=== PATIENT | female | born 1980 ===

== ENCOUNTER 2017-10-08 17:56 | Emergency (ER) | payer OTHER ==
[2017-08-06 13:36] VITALS: BMI 38.4
--- NOTE | 2017-10-08 19:31 | OBHP ---
Datetime: 10/08/2017 18:50 IP Adm Impression: Term, intrauterine ; No Active Labor IP Admit Plan: Discharge home Admit Comment, IP Provider: 37 y.o. , LMP 01/21/17, APPLE 10/28/17, EGA 37w 1d presents of revalu ation of possible SROM. Approx 1600 hours,m got up from sitting and noted undergarment was moist. Ch anged and observed x 25 minutes - similarly moist undergarment. Unable to describe color. Denies vagi nal bleeidng. (+) occ B-H Ctx. Not sexually active during care: Dr. Porter, noted for :1) Chr HTN; 2) Vit B12 deficiency - S/P IM therapy; last shot 2 weeks ago. 3) iron deficiency anemia - S/P IV iron infusion. Last treatment 10/06. 4) AMA - decline d amnio. 5) previous C/S; 6) Obesity P Ob: 2010, male, 7lb 12oz, failed JANA (2 cm dilated). [facility]; no complications. 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 Abnormal Pap 02/2017; S/P colpo(?) - f/u post . h/o endometriosis PMH: 1) HTN, diagnosed 2014. Denies cardiac, pulmonary, thyroid disorders PSH: 2008, laparoscopic right ovarian cystectomy (endometrioma); D_C; C/S NKDA Meds: 1) Labetalol 200mg p.o. BID; 2) PNV- once daily; 2) OTC Vit B12 - 5,000 IU -once dialy. Soc Hx: denies tobacco, illicit drug or EtOH use. x 12 years. Works in [employer] on maternity leave. Fam Hx: Mother alive ?55y.o. HTN, DM. Father alive 59 y.o. HTN. PGM - Breast Cancer P.E.: as above. Obese in NAD. Awake, alert, oriented to time, person and place. Pleasant and coop erative Assessment: 31 y.o. P1011, 37w 1d, no evidence of PROM. Previous C/S. B12 deficiency. Iron defici ency anemia - treatment as above. Category 1 tracing. BPS 03/03. Patient is clinically stable. Plan: 1) Discharge home 2) Patient for elective repeat C/S 10/11/17 3) Reviewed S/S PET and labor - as per, and discussed with, Dr. Porter. Pelvic Type - PN: Adequate Extremities - PN: Normal Abdomen - PN: Normal Breast - PN: Not Done Lungs - PN: Normal Heart - PN: Normal Thyroid - PN: Not Done Neurologic - PN: Normal HEENT - PN: Normal General - PN: Normal FHR - Baseline A Provider: 135 Contraction Comments Provider: infrequent Comments, ACOG Physical Exam: Abdomen: Obese. Gravid. Healed umbilical and Pfannenstiel scars. Perineum: dry. Sterile Speculum exam: minimal amount of pasty, creamy discharge. No odor. No pooling. Bedside sono: fundal placenta; DAMIEN 15.06 cm (MVP 5.02 cm), cepahlic, (+) FBM; (+) FM; (+) tone All other systems reviewed and are negative Gestation - Est Wks by US: 37w EGA AdmitDate IP: 37.1 Vital Signs Provider: Reviewed IP Chief Complaint: Suspected ruptured membranes NICHD Variability Prov Fetus A: Moderate 6-25bpm NICHD Accel Fetus A IP Provider: 15X15 FHR Category Provider Fetus A: Category I NICHD Decel Fetus A IP Provider: None Dilatation, Provider: 0 Effacement, Provider: 0 Station, Provider: high Genitourinary Exam: Normal DTRs - PN: Not Done
[2017-10-08 23:33] VITALS: BP 125/68; PULSE 89; RESP 18; TEMP 97.4
== END 2017-10-08 19:21 | disposition home or self-care (01) ==
LOC: C.EROB 17:56
DX: O26.893 Other specified pregnancy related conditions, third trimester (principal); E53.8 Deficiency of other specified B group vitamins; O99.013 Anemia complicating pregnancy, third trimester; D50.9 Iron deficiency anemia, unspecified; Z3A.37 37 weeks gestation of pregnancy

== ENCOUNTER 2017-10-11 07:17 | Inpatient (IN) | payer OTHER ==
[2017-10-11] MEDS ORDERED: Sodium Citrate/Citric Acid 15 ml Sol PO ONE (07:36)
[2017-10-11 07:37] VITALS: BMI 39.4
[2017-10-11] MEDS ORDERED: Lactated Ringer's 1,000 ML IV SCH (07:45)
--- NOTE | 2017-10-11 07:48 | OBHP ---
Datetime: 10/11/2017 07:43 IP Adm Impression: Term, intrauterine IP Admit Plan: Admit to unit; Initiate Section protocol Admit Comment, IP Provider: 37 y.o. , LMP 01/21/17, APPLE 10/28/17, EGA 37w 4d hx of chronic htn and preiovus ceseare esction c/ o ctx pain every 5 min since this mornign increasing intensiyt and fr uqency 02/02. Pt dnie sany lof, vb, +FM Pt dneis any headhaes, blurry vision, ruq/epigastri pain. care: Dr. Porter, noted for :1) Chr HTN; 2) Vit B12 deficiency - S/P IM therapy; last shot 2 weeks ago. 3) iron deficiency anemia - S/P IV iron infusion. Last treatment 10/06. 4) AMA - decline d amnio. 5) previous C/S; 6) Obesity P Ob: 2010, male, 7lb 12oz, failed JANA (2 cm dilated). [facility]; no complications. 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 Abnormal Pap 02/2017; S/P colpo(?) - f/u post . h/o endometriosis PMH: 1) HTN, diagnosed 2014. Denies cardiac, pulmonary, thyroid disorders PSH: 2008, laparoscopic right ovarian cystectomy (endometrioma); D_C; C/S NKDA Meds: 1) Labetalol 200mg p.o. BID; 2) PNV- once daily; 2) OTC Vit B12 - 5,000 IU -once dialy. Soc Hx: denies tobacco, illicit drug or EtOH use. x 12 years. Works in [employer] ([employer] on maternity leave. Fam Hx: Mother alive ?55y.o. HTN, DM. Father alive 59 y.o. HTN. PGM - Breast Cancer P.E.: as above. Obese in NAD. Awake, alert, oriented to time, person and place. Pleasant and coop erative Assessment: 31 y.o. P1011, 37w 4d chronic htn prevuoius cesearen section velia in labor Plan: -admit to L+D -npo, ivf -or/anstheis aware -admission labs -BP vitals, PIH baseline -conesnt obtaine -abdominal prep, thompson to graivty scds -antibiotics Pelvic Type - PN: Adequate Extremities - PN: Normal Abdomen - PN: Normal Back - PN: Normal Breast - PN: Not Done Lungs - PN: Normal Heart - PN: Normal Thyroid - PN: Not Done Neurologic - PN: Normal HEENT - PN: Normal General - PN: Normal Weight - Estimated: 3300 Presentation-Admit: Vertex FHR - Baseline A Provider: 125 Membranes, Provider: Intact Gestation - Est Wks by US: 37.4 IP Hx Assessment: The History has been Reviewed and is Current EGA AdmitDate IP: 37.4 Vital Signs Provider: Reviewed; Within Normal Limits IP Chief Complaint: Uterine contractions NICHD Variability Prov Fetus A: Moderate 6-25bpm FHR Category Provider Fetus A: Category I NICHD Decel Fetus A IP Provider: None Dilatation, Provider: 3 Effacement, Provider: 50 Station, Provider: -2 Genitourinary Exam: Normal DTRs - PN: Normal
--- NOTE | 2017-10-11 08:00 | OBADHP ---
Datetime: 10/11/2017 07:43 Admit Comment, IP Provider: 37 y.o. , LMP 01/21/17, APPLE 10/28/17, EGA 37w 4d hx of chronic htn and preiovus ceseare esction c/ o ctx pain every 5 min since this mornign increasing intensiyt and fr uqency 02/02. Pt dnie sany lof, vb, +FM Pt dneis any headhaes, blurry vision, ruq/epigastri pain. care: Dr. Porter, noted for :1) Chr HTN; 2) Vit B12 deficiency - S/P IM therapy; last shot 2 weeks ago. 3) iron deficiency anemia - S/P IV iron infusion. Last treatment 10/06. 4) AMA - decline d amnio. 5) previous C/S; 6) Obesity P Ob: 2010, male, 7lb 12oz, failed JANA (2 cm dilated). [facility]; no complications. 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 Abnormal Pap 02/2017; S/P colpo(?) - f/u post . h/o endometriosis PMH: 1) HTN, diagnosed 2014. Denies cardiac, pulmonary, thyroid disorders PSH: 2008, laparoscopic right ovarian cystectomy (endometrioma); D_C; C/S NKDA Meds: 1) Labetalol 200mg p.o. BID; 2) PNV- once daily; 2) OTC Vit B12 - 5,000 IU -once dialy. Soc Hx: denies tobacco, illicit drug or EtOH use. x 12 years. Works in [email or web address]): [employer] on maternity leave. Fam Hx: Mother alive ?55y.o. HTN, DM. Father alive 59 y.o. HTN. PGM - Breast Cancer P.E.: as above. Obese in NAD. Awake, alert, oriented to time, person and place. Pleasant and coop erative Assessment: 31 y.o. P1011, 37w 4d chronic htn prevuoius cesearen section velia in labor Plan: -admit to L+D -npo, ivf -or/anstheis aware -admission labs -BP vitals, PIH baseline -conesnt obtaine -abdominal prep, thompson to graivty scds -antibiotics Pelvic Type - PN: Adequate Extremities - PN: Normal Abdomen - PN: Normal Back - PN: Normal Breast - PN: Not Done Lungs - PN: Normal Heart - PN: Normal Thyroid - PN: Not Done Neurologic - PN: Normal HEENT - PN: Normal General - PN: Normal Weight - Estimated: 3300 Presentation-Admit: Vertex FHR - Baseline A Provider: 125 Membranes, Provider: Intact Gestation - Est Wks by US: 37.4 IP Hx Assessment: The History has been Reviewed and is Current Vital Signs Provider: Reviewed; Within Normal Limits IP Chief Complaint: Uterine contractions NICHD Variability Prov Fetus A: Moderate 6-25bpm FHR Category Provider Fetus A: Category I NICHD Decel Fetus A IP Provider: None Dilatation, Provider: 3 Effacement, Provider: 50 Station, Provider: -2 Genitourinary Exam: Normal DTRs - PN: Normal EGA AdmitDate IP: 37.4 IP Adm Impression: Term, intrauterine IP Admit Plan: Admit to unit; Initiate Section protocol Datetime: 10/08/2017 18:50 Contraction Comments Provider: infrequent Comments, ACOG Physical Exam: Abdomen: Obese. Gravid. Healed umbilical and Pfannenstiel scars. Perineum: dry. Sterile Speculum exam: minimal amount of pasty, creamy discharge. No odor. No pooling. Bedside sono: fundal placenta; DAMIEN 15.06 cm (MVP 5.02 cm), cepahlic, (+) FBM; (+) FM; (+) tone All other systems reviewed and are negative NICHD Accel Fetus A IP Provider: 15X15
[2017-10-11] MEDS ORDERED: cefOXitin IV 2 gm in Saline 2 GM/50 ML BAG IVPB ONE (08:19)
[2017-10-11] MEDS ORDERED: Sodium Citrate/Citric Acid 15 ml Sol ONE (08:19)
[2017-10-11 08:30] LABS: BASO # 0.1 K/uL (0.0-0.2); BASO % 0.9 % (0.0-2.0); EOS # 0.2 K/uL (0.0-0.7); EOS % 2.4 % (0.0-4.0); HEMOGLOBIN 11.1 g/dL (11.0-16.0); LYMPH # 1.5 K/uL (1.0-4.3); MEAN CELL VOLUME 95.9 fL (81.0-99.0); MEAN CORPUSCULAR HEMOGLOBIN 32.5 pg (27.0-31.0); MEAN CORPUSCULAR HGB CONC 33.9 g/dL (33.0-37.0); MEAN PLATELET VOLUME 9.1 fL (7.2-11.7); MONO # 0.5 K/uL (0.0-0.8); MONO % 6.7 % (0.0-10.0); NEUT # 5.6 K/uL (1.8-7.0); NRBC % 0.1 % (0.0-2.0); RBC 3.41 Mil/uL (3.80-5.20); RED CELL DISTRIBUTION WIDTH 15.1 % (11.5-14.5); WHITE BLOOD COUNT 7.8 K/uL (4.8-10.8)
[2017-10-11 08:44] LABS: ALB/GLOB RATIO 1.1 (1.0-2.1); ALBUMIN 3.1 g/dL (3.5-5.0); ALT/SGPT 34 U/L (9-52); AST/SGOT 20 U/L (14-36); BLOOD UREA NITROGEN 5 mg/dL (7-17); CALCIUM 8.4 mg/dl (8.6-10.4); GFR AFRICAN-AMERICAN > 60; GFR NON-AFRICAN AMERICAN > 60
[2017-10-11 09:15] LABS: HEPATITIS B SURFACE AG Negative (NEGATIVE)
[2017-10-11] MEDS ORDERED: ePHEDrine 50 mg/ml Inj ONE (09:51)
[2017-10-11] MEDS ORDERED: Oxycodone/Acetaminophen 5/325 mg Tab PO PRN (10:39)
--- NOTE | 2017-10-11 11:31 | OBDS ---
DELIVERY PERSONNEL Delivery Doctor: Sandee Porter MD Scrub Nurse: Niki Dennis OBT Manufacturing Process Technician: Marito Villanueva RN Anesthesiologist: earnestine MATERNAL INFORMATION Delivery Anesthesia: Spinal Maternal Complications: None RN Comments: AMA H/O CHRONIC HTN H/O FESO4 INFUSIONS FOR LOW HEMAGLOBIN H/O HPV Provider Comments: live male ifnat cepahlic presentation agpar 9,9 weight of 7lbs 9 ounces noraml uteurs, tubes and ovaries bilaterally ebl 800 ml law office manager presnt for delivery no complications LABOR SUMMARY EDC: 10/28/2017 00:00 No. Babies in Womb: 1 Attempted: No Labor Anesthesia: None LABOR INFORMATION Reason for Induction: Not Applicable Oxytocin: N/A Group B Beta Strep: Negative Steroids Given: None Reason Steroids Not Administered: Not Applicable MEMBRANES Membranes Rupture Method: Artificial Rupture of Membranes: 10/11/2017 10:56 Length of Rupture (hrs): 0.02 Amniotic Fluid Color: Clear Amniotic Fluid Amount: Moderate Amniotic Fluid Odor: Normal STAGES OF LABOR Stage 3 hrs: 0 Stage 3 min: 1 CSECTION DELIVERY Primary Indication: Repeat Elective Secondary Indication: Other Other Secondary Indication: EARLY LABOR CSection Urgency: Elective CSection Incidence: Repeat Labor: Labor Elective: Elective CSection Incision: Lower Uterine Transverse BABY A INFORMATION Infant Delivery Date/Time: 10/11/2017 10:57 Method of Delivery: Born in Route : No : N/A Forceps: N/A Vacuum Extraction: N/A Shoulder Dystocia : No SHOULDER DYSTOCIA BABY A Infant Delivery Date/Time: 10/11/2017 10:57 PRESENTATION/POSITION BABY A Presentation: Cephalic Breech Presentation: N/A PLACENTA INFORMATION BABY A Placenta Delivery Time : 10/11/2017 10:58 Placenta Method of Delivery: Manual Removal Placenta Status: Delivered SCORES BABY A Heart Rate 1 min: >100 bpm Resp Effort 1 min: Good Cry Reflex Irritability 1 min: Cough or Sneeze or Pulls Away Muscle Tone 1 min: Active Motion Color 1 min: Body [place], Extremities Blue Resuscitation Effort 1 min: N/A SCORE 1 MIN: 9 Heart Rate 5 min: >100 bpm Resp Effort 5 min: Good Cry Reflex Irritability 5 min: Cough or Sneeze or Pulls Away Muscle Tone 5 min: Active Motion Color 5 min: Body [place], Extremities Blue Resuscitation Effort 5 min: N/A SCORE 5 MIN: 9 INFANT INFORMATION BABY A Gestational Age at Delivery: 37.4 Gestational Status: Term Infant Outcome : Liveborn Condition : Stable Infant Sex: Male IDENTIFICATION/MEDS BABY A ID Band Number: [id number] ID Band Location: Left Leg; Left Arm Sensor Applied: Yes Sensor Number: [id number] Sensor Location : Cord Clamp WEIGHT/LENGTH BABY A Birthweight (gms): 3445 Infant Weight (lb): 7 Weight (oz): 9 Length Inches: 19.50 Length cms: 49.5 CORD INFORMATION BABY A No. Cord Vessels: 3 Nuchal Cord : N/A Cord Blood Taken: Yes Infant Suction: Mouth; Nose
[2017-10-11] MEDS ORDERED: DiphenhydrAMINE 50 mg/ml Inj IVP PRN (11:38)
--- NOTE | 2017-10-11 11:40 | PCM.SURG1 ---
Surgeon's Initial Post Op Note - Surgeon's Notes Surgeon: Gely colin MD Aitchbone Breaker: José Rae MD Type of Anesthesia: Spinal Pre-Operative Diagnosis: Term Intrauteirne prengancy, chronic hypertension, previous cesearen section contractin in elary laobr Operative Findings: live male infant, cephalic presnt, apgars 9,9 weigh of 7lb 9 ounce, normal appearing uteurs, tubse and ovaries bilaerll. pediatiricn present for dleiveyr. Dr José Rae was surgical assistna and present for entire case and essential in gainign entry, retraction, epxoure, holding bladder blade, h elpign to delivery ifnant, closing all cortez. Post-Operative Diagnosis: same as above Operation Performed: Repeat low transverse cesearen section Specimen/Specimens Removed: placenta Estimated Blood Loss: EBL {In ML}: 800 Blood Products Given: N/A Drains Used: No Drains Post-Op Condition: Good Date of Surgery/Procedure: 10/11/17 Time of Surgery/Procedure: 10:55
[2017-10-11] MEDS ORDERED: cefOXitin 2 GM in Sodium Chloride 0.9% 100 ML IV SCH (16:00)
[2017-10-11] MEDS: cefOXitin 2 GM in Sodium Chloride 0.9% 100 ML IV SCH (20:51)
--- NOTE | 2017-10-11 23:23 | OP ---
PROCEDURE DATE: 10/11/2017 SURGEON: Gely Porter MD PARTY PLAN DEALER: José Rae MD TYPE OF ANESTHESIA: Spinal. PREOPERATIVE DIAGNOSES: Term intrauterine , chronic hypertension, previous section, velia in labor. POSTOPERATIVE DIAGNOSES: Term intrauterine , chronic hypertension, previous section, velia in labor. OPERATIVE FINDINGS: Live male , cephalic presentation, Apgars 9 and 9, weight of 7 pounds 9 ounces, normal appearing uterus, tubes and ovaries bilaterally. Firearms Specialist present for delivery. Dr. José Rae, the surgical elastic knitter was present for the entire case, essentially in gaining entry, retraction, exposure, holding the bladder blade, helping to deliver the infant, closing all layers. OPERATION PERFORMED: Repeat low transverse section. SPECIMENS REMOVED: Placenta. ESTIMATED BLOOD LOSS: 800 mL. BLOOD PRODUCTS: None. COMPLICATIONS: None. DESCRIPTION OF PROCEDURE: The patient was taken to the operating room where she was given spinal anesthesia. Once found to be adequate, she was then positioned on the operating table in dorsal supine position. The patient was then prepped and draped in the usual sterile fashion. A time-out confirmed correct patient and correct procedure. The patient was given preoperative prophylactic antibiotic. A Pfannenstiel skin incision was made through the existing incision and carried down to the underlying fascia with the Bovie. The fascia was incised in midline. The incision was extended laterally with the Bovie. The inferior aspect of the fascial incision was grasped with Allis and Baljinder clamps and the underlying rectus muscle was dissected off bluntly. Attention was then turned to the superior aspect of the incision which in a similar fashion was grasped, elevated with Baljinder clamps and the underlying rectus muscles were dissected off bluntly. The rectus muscles were then bluntly in the midline. The peritoneum was identified in the clear space. This was tented up with a Jennifer clamp and entered sharply with Metzenbaum scissors. The incision was extended laterally and superiorly until there was good visualization of the bladder. The lower end of the Salvatore was then reinserted and the lower uterine segment was incised in a transverse fashion. The uterine incision was extended laterally bluntly. The surgeon's hand entered the uterine cavity. Infant's head was delivered atraumatically, followed by delivery of the body, followed by delivery of shoulders. Both oral and nasal passages of the baby were bulb suctioned. The umbilical cord was clamped and cut. Baby was handed off to the awaiting machine chain maker. Cord blood and cord gases were collected and sent x2. The placenta was then delivered manually. The uterus was exteriorized of all clots and debris and the uterine incision was repaired with 0 Vicryl in a running continuous locked fashion. A second layer of the same suture was used to close the uterus in a running imbricated manner. There was good hemostasis at the uterine incision. There were normal tubes and ovaries. The uterus was then returned to the abdomen. The pericolic gutters were cleared of all clots and debris. The uterine incision was reexamined. There was good hemostasis noted. The peritoneum was reapproximated and closed with 2-0 chromic in a running continuous fashion. The rectus was reapproximated and closed with 2-0 chromic in an interrupted manner. The fascia was reapproximated and closed with 0 Vicryl in a running continuous fashion. Subcutaneous space was closed with 2-0 plain in an interrupted manner and the skin was reapproximated and closed with 4-0 Monocryl in a running subcuticular fashion. At the end of the procedure, all needles, sponge, and instrument counts were noted to be correct x2. The patient tolerated the procedure well and was transferred to the recovery room in stable condition. Gely Porter MD
[2017-10-12] MEDS: Oxycodone/Acetaminophen 5/325 mg Tab PO PRN ×3 (01:51→22:07)
[2017-10-12] MEDS: cefOXitin 2 GM in Sodium Chloride 0.9% 100 ML IV SCH ×3 (04:45→21:27)
--- NOTE | 2017-10-12 06:34 | OBPPN ---
Datetime: 10/12/2017 06:31 PP Pain Prov: Within normal limits PP Nausea Prov: Denies PP Flatus Prov: Yes PP BM Prov: No PP Breasts Prov: Normal PP Heart Prov: Normal PP Lungs Prov: Normal PP Abdomen/Uterus Prov: Normal PP Lochia Prov: Normal PP Vulva/Perineum Prov: Normal PP CVA Tenderness Prov: Normal PP Extremities Prov: Normal PP C/S Incision Prov: Normal PP Progress Prov: Normal PP Impression Prov: Normal progression PP Plan Prov: Continue present management PP Progress Note Prov: pt seen and examiend adn reports pain is contrllled. pt denies any headaches, blury visoin, ruq/epigastric pain. Pt is breast feeding and deines any fevers, chills, nause, vomiti ng, cp, sob VS see above GEN: NAD, AA Ox 3 RESP: CTAB/l CVS: RRR< +S1/S2 ABD: Soft, Appropriatly TTP over incsion ,no guarding no rebound tenderness, no rigidty, +BS Incsion C/D/I healing wlel No uterien tendneres VE; Minimal lochia non fouls semlling A/P s/p RLTCS POD #1 with chronic htn doing well -dc thompson -f/u am labs -VS, labetaol 200mg BID, V parameter -advance diet as tolerated -encourge ambuatin out of bed, breast feeding -bowel regimen Vital Signs Provider PP: Reviewed; Within Normal Limits
[2017-10-12 08:09] LABS: BASO % 0.3 % (0.0-2.0); EOS # 0.1 K/uL (0.0-0.7); EOS % 1.5 % (0.0-4.0); HEMOGLOBIN 11.2 g/dL (11.0-16.0); LYMPH # 0.9 K/uL (1.0-4.3); LYMPH % 9.6 % (20.0-40.0); MEAN CELL VOLUME 96.6 fL (81.0-99.0); MEAN CORPUSCULAR HEMOGLOBIN 33.1 pg (27.0-31.0); MEAN CORPUSCULAR HGB CONC 34.3 g/dL (33.0-37.0); MEAN PLATELET VOLUME 8.5 fL (7.2-11.7); MONO # 0.6 K/uL (0.0-0.8); MONO % 6.1 % (0.0-10.0); NEUT # 7.7 K/uL (1.8-7.0); NEUT % 82.5 % (50.0-75.0); PLATELET COUNT 250 K/uL (130-400); RBC 3.39 Mil/uL (3.80-5.20); RED CELL DISTRIBUTION WIDTH 15.6 % (11.5-14.5); WHITE BLOOD COUNT 9.4 K/uL (4.8-10.8)
[2017-10-12 09:30] LABS: BANDS 1 % (0-2); LYMPHOCYTE 12 % (20-40); TOTAL CELLS COUNTED 100
[2017-10-12 09:31] LABS: MONOCYTE 6 % (0-10); NEUTROPHIL 82 % (50-75); PLATELET ESTIMATE NORMAL (NORMAL)
[2017-10-12 09:32] LABS: ANISOCYTOSIS SLIGHT; HYPOCHROMIC SLIGHT; LARGE PLATELETS PRESENT; POIKILOCYTOSIS SLIGHT; POLYCHROMIC SLIGHT
[2017-10-12] MEDS: Prenatal Multivit/Folic Acid/Iron Tab PO SCH (09:52)
[2017-10-12] MEDS: Simethicone 80 mg Chewtab PO SCH ×3 (14:01→21:28)
[2017-10-13] MEDS: Oxycodone/Acetaminophen 5/325 mg Tab PO PRN (08:09)
[2017-10-13 08:44] VITALS: O2SAT 97
[2017-10-13] MEDS: Prenatal Multivit/Folic Acid/Iron Tab PO SCH (09:41)
[2017-10-13] MEDS: Simethicone 80 mg Chewtab PO SCH ×2 (09:41→13:52)
--- NOTE | 2017-10-13 16:32 | OBDCSUM ---
Datetime: 10/13/2017 15:48 Discharged to, Provider: Home Follow up at, Provider: Dr. Gely Porter Disch Instr Activity: Normal activity Disch Instr Diet: Regular Discharge Diet restrict Prov: none Discharge Instructions, Provider: Routine instructions given Discharge Diagnosis, Provider: Term Delivered Discharge Time: 10/13/2017 18:00 Follow up in weeks, Provider: October 20, 2017 Disch Referrals: None Contraception discussed, Prov: Yes Disch Activity Restrictions: No exercising; No lifting; No driving; Minimize walking; Minimize stair -climbing; No sexual activity; Nothing in vagina - [place], tampons, douche Discharge Comment, Provider: precaution Contraception after Delivery: Not Planning to Use
--- NOTE | 2017-10-13 16:33 | OBPPN ---
Datetime: 10/13/2017 16:30 PP Pain Prov: Within normal limits PP Nausea Prov: Denies PP Flatus Prov: Yes PP BM Prov: No PP Breasts Prov: Normal PP Heart Prov: Normal PP Lungs Prov: Normal PP Abdomen/Uterus Prov: Normal PP Lochia Prov: Normal PP Vulva/Perineum Prov: Normal PP CVA Tenderness Prov: Normal PP Extremities Prov: Normal PP C/S Incision Prov: Normal PP Progress Prov: Normal PP Impression Prov: Normal progression PP Plan Prov: Continue present management PP Progress Note Prov: pt seen and examiend adn reports pain is contrllled. pt denies any headaches, blury visoin, ruq/epigastric pain. Pt is breast feeding and deines any fevers, chills, nause, vomiti ng, cp, sob VS see above GEN: NAD, AA Ox 3 RESP: CTAB/l CVS: RRR< +S1/S2 ABD: Soft, Appropriatly TTP over incsion ,no guarding no rebound tenderness, no rigidty, +BS Incsion C/D/I healing wlel No uterien tendneres VE; Minimal lochia non fouls semlling A/P s/p RLTCS POD # 2with chronic htn doing well rquesigtn dxc -dc home -rt 1 week -bp precuaiton given Vital Signs Provider PP: Reviewed; Within Normal Limits
[2017-10-13 16:34] VITALS: BP 120/80; PULSE 97; RESP 20; TEMP 97.5
== END 2017-10-13 17:45 | disposition home or self-care (01) | DRG 766 ==
LOC: C.EROB 07:17 → C.4D 07:27 → C.4M 13:51
PROVIDERS: ADMIT Obstetrics & Gynecology; ATTEND Obstetrics & Gynecology
PROC: 10D00Z1 Extraction of Products of Conception, Low, Open Approach (ICD-10-PCS; principal; 2017-10-11)
DX: O10.92 Unspecified pre-existing hypertension complicating childbirth (principal); O34.219 Maternal care for unspecified type scar from previous cesarean delivery; D50.9 Iron deficiency anemia, unspecified; O99.214 Obesity complicating childbirth; O99.02 Anemia complicating childbirth; Z37.0 Single live birth; Z3A.37 37 weeks gestation of pregnancy